=== PATIENT | female | born 1935 | race Caucasian/White ===

== ENCOUNTER 2021-08-31 12:16 | Emergency (ER) | payer OTHER ==
[2021-08-31 12:22] VITALS: BP 130/79; PULSE 91; TEMP 97; BMI 19.0
[2021-08-31] MEDS ORDERED: ACETAMINOPHEN 500 MG TABLET (FP) PO ONE (14:23)
[2021-08-31] MEDS ORDERED: ACETAMINOPHEN 500 MG TABLET (FP) ONE (14:29)
== END 2021-08-31 14:57 | disposition left against medical advice (07) ==
LOC: JER 12:16
DX: S70.02XA Contusion of left hip, initial encounter (principal); W00.9XXA Unspecified fall due to ice and snow, initial encounter
CPT/HCPCS: 72170-TC-FY; 73502-TC-LT-FY; 99284-25